=== PATIENT | male | born 1975 | race American Indian/Alaskan Native ===

== ENCOUNTER 2018-01-08 12:11 | Emergency (ER) | payer OTHER ==
--- NOTE | 2018-01-08 16:00 | Emergency Department Report ---
ED Male HPI - General Chief complaint: Urogenital-Male Stated complaint: TESTICLE PAIN Time Seen by Provider: 01/08/18 17:00 Source: patient Mode of arrival: Ambulatory Limitations: No Limitations - History of Present Illness Initial comments: Patient here complaining of left testicular swelling and bilateral testicular pain. He is also saying that he had lower back pain that started flaring up for 3 days but he's been have an lower back pain for over 2 years now. Denies any radiation. Pain is located on both sides. He reports urine frequency but denies any blood in his urine or any burning. Denies any penile discharge and denies any rash to his penile area. Patient said he is not concerned about STDs because he does not have unprotected sex. Denies any sore throat. Denies any radiation of pain to her extremities. Denies any abdominal pain. Denies any nausea or vomiting. Denies any fever or chills. Urinary symptoms started 3 days ago. Patient blood pressure is elevated at 159/109 and he said he takes lisinopril 10 mg. He said he has a primary care doctor and he saw him 5 years ago and his primary care will call in his lisinopril. He said that his primary care causing his lisinopril when he needs it but he hasn't seen them in 5 years. Patient said he had a physical exam done at urgent care recently and everything was normal except his blood pressure was elevated. He said his blood pressure is always elevated. He denies any headache, chest pain or shortness of breath. Patient was here in 2012 and lisinopril was refilled. He said after that he saw his primary care refilled this medication [facility] to call him. He said it still far for him to go because [facility] in [place]. I asked patient and the name of his primary care but he did not want to tell me and I also asked him which pharmacy he goes to and he said he goes to [facility]. He was given clonidine 0.2 mg in triage area. Denies any history of kidney stones. Complaint: testicle pain, testicle swelling, other (frequency) Onset/Timin -: days(s) Location: right testicle, left testicle Radiation: none Severity: severe Severity scale (0 -10): 5 Quality: dull Consistency: constant Improves with: rest Worsens with: palpation, movement swelling, other. denies: discharge, mass, rash, urinary retention, blood in urine, dysuria, fever, nausea/vomiting, incontinence - Related Data Sexually active: No Home Medications Medication Instructions Recorded Confirmed Last Taken HYDROcodone/ACETAMINOPHEN 08/06/13 08/06/13 08/03/13 19:30 [Hydrocodon-Acetaminophen 5-500 Tab (Nf)] Naproxen 08/06/13 08/06/13 07/30/13 Previous Rx's Medication Instructions Recorded Last Taken Type HYDROcodone/APAP 5-325 [[place] 1 each PO Q6HR PRN #60 tablet 08/06/13 Unknown Rx 5/325 mg] metroNIDAZOLE [Flagyl] 250 mg PO Q8HR #30 tablet 08/06/13 Unknown Rx Doxycycline [Vibramycin CAP] 100 mg PO Q12HR #20 capsule 07/30/15 Unknown Rx Ibuprofen [Motrin] 600 mg PO Q8H PRN #30 tablet 07/30/15 Unknown Rx metroNIDAZOLE [Flagyl] 500 mg PO Q12HR #20 tab 07/30/15 Unknown Rx Ciprofloxacin HCl [Ciprofloxacin 500 mg PO Q12H 10 Days #20 tab 01/08/18 Unknown Rx TAB] Lisinopril 20 mg PO QDAY 30 Days #30 tablet 01/08/18 Unknown Rx traMADol [Ultram] 50 mg PO Q6HR PRN #12 tablet 01/08/18 Unknown Rx Allergies Allergy/AdvReac Type Severity Reaction Status Date / Time No Known Allergies Allergy Unverified 07/30/13 10:09 ED Review of Systems ROS: Stated complaint: TESTICLE PAIN Other details as noted in HPI Comment: All other systems reviewed and negative Constitutional: no symptoms reported ENT: denies: throat pain Respiratory: no symptoms reported Cardiovascular: denies: chest pain, palpitations, dyspnea on exertion, orthopnea , edema, syncope, paroxysmal nocturnal dyspnea Gastrointestinal: denies: abdominal pain, nausea, vomiting, diarrhea, constipation, hematemesis, melena, hematochezia Genitourinary: frequency, testicular pain, testicular mass. denies: urgency, dysuria, hematuria, discharge Musculoskeletal: back pain. denies: joint swelling, arthralgia, myalgia Skin: denies: rash Neurological: denies: headache, weakness, numbness, paresthesias, confusion, abnormal gait, vertigo ED Past Medical Hx - Past Medical History Previous Medical History?: Yes Hx Hypertension: Yes - Surgical History Past Surgical History?: No - Family History Family history: hypertension - Social History Smoking Status: Never Smoker Substance Use Type: Alcohol - Medications Home Medications: Home Medications Medication Instructions Recorded Confirmed Last Taken Type HYDROcodone/ACETAMINOPHEN 08/06/13 08/06/13 08/03/13 19:30 History [Hydrocodon-Acetaminophen 5-500 Tab (Nf)] HYDROcodone/APAP 5-325 [[place] 1 each PO Q6HR PRN #60 tablet 08/06/13 Unknown Rx 5/325 mg] Naproxen 08/06/13 08/06/13 07/30/13 History metroNIDAZOLE [Flagyl] 250 mg PO Q8HR #30 tablet 08/06/13 Unknown Rx Doxycycline [Vibramycin CAP] 100 mg PO Q12HR #20 capsule 07/30/15 Unknown Rx Ibuprofen [Motrin] 600 mg PO Q8H PRN #30 tablet 07/30/15 Unknown Rx metroNIDAZOLE [Flagyl] 500 mg PO Q12HR #20 tab 07/30/15 Unknown Rx Ciprofloxacin HCl [Ciprofloxacin 500 mg PO Q12H 10 Days #20 tab 01/08/18 Unknown Rx TAB] Lisinopril 20 mg PO QDAY 30 Days #30 tablet 01/08/18 Unknown Rx traMADol [Ultram] 50 mg PO Q6HR PRN #12 tablet 01/08/18 Unknown Rx ED Physical Exam - General Limitations: No Limitations General appearance: alert, in no apparent distress - Head Head exam: Present: atraumatic, normocephalic, normal inspection - Eye Eye exam: Present: normal appearance, PERRL, EOMI. Absent: scleral icterus, conjunctival injection, nystagmus, periorbital swelling, periorbital tenderness Pupils: Present: normal accommodation - ENT ENT exam: Present: normal exam, normal orophraynx, mucous membranes moist - Neck Neck exam: Present: normal inspection, full ROM, other. Absent: tenderness, meningismus, lymphadenopathy, thyromegaly - Respiratory Respiratory exam: Present: normal lung sounds bilaterally. Absent: respiratory distress, chest wall tenderness, accessory muscle use - Cardiovascular Cardiovascular Exam: Present: regular rate, normal rhythm, normal heart sounds. Absent: systolic murmur, diastolic murmur - GI/Abdominal GI/Abdominal exam: Present: soft, normal bowel sounds. Absent: distended, tenderness, guarding, rebound, rigid, organomegaly, mass, bruit, pulsatile mass , hernia - exam: Present: testicular tenderness, scrotal swelling. Absent: normal inspection, urethral discharge, vertical testicular lie, circumcision External exam: Present: swelling. Absent: normal external exam, erythema, lesions, lacerations, ecchymosis, bleeding - Expanded Exam Expanded Male exam: Absent: phimosis, paraphimosis, penile swelling, lesions, induration, erythema, perineal induration, balanitis, priapism exam: Testicular Tenderness: Left, Right, Testicular Swelling: Left, Cremasteric Reflex Present: Left, Right - Extremities Exam Extremities exam: Present: normal inspection, full ROM, normal capillary refill , other (no clubbing, cyanosis or edema. +2 pulses to all extremities. No neurovascular compromise). Absent: tenderness, pedal edema, joint swelling, calf tenderness - Back Exam Back exam: Present: normal inspection, full ROM, other (patient ambulates without any difficulties). Absent: tenderness, CVA tenderness (R), CVA tenderness (L), muscle spasm, paraspinal tenderness, vertebral tenderness, rash noted - Expanded Back Exam Expanded Back exam: Absent: saddle anesthesia Back exam: Negative Straight Leg Raising: Left, Right - Neurological Exam Neurological exam: Present: alert, oriented X3, normal gait, reflexes normal. Absent: motor sensory deficit - Expanded Neurological Exam Expanded Neurological exam: Absent: innattentive, memory loss-remote event, memory loss- recent event, ataxia, receptive aphasia, expressive aphasia, total aphasia, tremor, protecting the airway Patient oriented to: Present: person, place, time Speech: Present: fluid speech Cranial nerves: EOM's Intact: Normal, Gag Reflex: Normal, Tongue Deviation: Normal, Nystagmus: Normal Cerebellar function: Romberg: Normal Upper motor neuron: Pronator Drift: Normal, Sensory Extinction: Normal Sensory exam: Upper Extremity Light Touch: Normal, Upper Extremity Temperature: Normal, UE 2 Point Discrimination: Normal, Lower Extremity Light Touch: Normal, Lower Extremity Pin Prick: Normal, Lower Extremity Temperature: Normal Motor strength exam: RUE: 5, LUE: 5, RLE: 5, LLE: 5 DTR: bicep (R): 2+, bicep (L): 2+, tricep (R): 2+, tricep (L): 2+, knee (R): 2+ , knee (L): 2+, ankle (R): 2+, ankle (L): 2+ Best Eye Response (Billy): (4) open spontaneously Best Motor Response (Seward): (6) obeys commands Best Verbal Response (Billy): (5) oriented Billy Total: 15 - Psychiatric Psychiatric exam: Present: normal affect, normal mood - Skin Skin exam: Present: warm, dry, intact, normal color. Absent: rash ED Course Vital Signs 01/08/18 01/08/18 01/08/18 13:57 17:36 18:47 Temperature 98.3 F Pulse Rate 97 H 85 Respiratory 16 18 20 Rate Blood Pressure 159/109 Blood Pressure 142/92 [Right] O2 Sat by Pulse 98 99 Oximetry - Reevaluation(s) Reevaluation #1: 01/08/18 18:19 Patient is stable. He received Motrin 800 mg by mouth in the emergency room for pain. Patient with urinary tract infection and receive Rocephin 1 g IM. Ultrasound shows patient with bilateral hydrocele otherwise normal. Patient given clonidine 0.2 mg and blood pressure to be rechecked. ED Medical Decision Making - Lab Data Lab Results 01/08/18 Range/Units 15:27 Urine Color Yellow (Yellow) Urine Turbidity Clear (Clear) Urine pH 6.0 (5.0-7.0) Ur Specific [place] 1.016 (1.003-1.030) Urine Protein <15 mg/dl (Negative) mg/dL Urine Glucose (UA) Neg (Negative) mg/dL Urine Ketones Neg (Negative) mg/dL Urine Blood Neg (Negative) Urine Nitrite Neg (Negative) Urine Bilirubin Neg (Negative) Urine Urobilinogen < 2.0 (<2.0) mg/dL Ur Leukocyte Esterase Sm (Negative) Urine WBC (Auto) 9.0 H (0.0-6.0) /HPF Urine RBC (Auto) 3.0 (0.0-6.0) /HPF Urine Bacteria (Auto) 1+ (Negative) /HPF Urine culture sent - Radiology Data Radiology results: report reviewed Ultrasound of the testicles revealed small bilateral hydroceles.. There are no focal masses. There is normal testicular blood flow demonstrated by Doppler evaluation and call or imaging. The epididymal head appears normal. There are no varicoceles. - Medical Decision Making ED course: Pt here complaining of testicular pain, lower back pain which he said he has chronic lower back pain but lower back pain started again 3 days ago and he denies injured himself and he is also have urinary frequency. Urinalysis done in patient with positive leukocyte Estrace, positive white count and positive bacteria otherwise of the urine values are stable. In culture pending. Testicular ultrasound reveals patient with bilateral small hydrocele without any other abnormality. This was relayed to patient and he voiced understanding. I discussed patient that he needs to find a new primary care doctor that will be able to see him and not order his medication for 5 years over the phone for his blood pressure. Patient prescription is up-to- date. He was given clonidine 0.2 mg by mouth in emergency room. Patient was given Motrin 800 mg by mouth for pain which helped his pain. He was given Rocephin 1 g IM for urinary tract infection. I discussed the patient will refer him to Dr. Verdugo was provider relations rep internal medicine doctor that he needs to call and schedule an appointment for new patient's physical exam and management of chronic hypertension. I also discussed with him that he'll need to follow- up with urologist regarding hydrocele if this continues and I'll refer him to [facility]. Patient voiced understanding of diagnosis, treatment plan and need to follow up. Patient discharged home with prescription for ciprofloxacin , Ultram and I will increase his lisinopril to 20 mg once daily for management of blood pressure. Critical care attestation.: If time is entered above; I have spent that time in minutes in the direct care of this critically ill patient, excluding procedure time. ED Disposition Clinical Impression: Elevated blood pressure reading with diagnosis of hypertension, Hydrocele in adult, Testicular pain, Acute cystitis without hematuria Lower back pain Qualifiers: Chronicity: unspecified Back pain laterality: bilateral Sciatica presence: without sciatica Qualified Code(s): M54.5 - Low back pain Disposition: - TO HOME OR SELFCARE Is pt being admited?: No Does the pt Need Aspirin: No Condition: Stable Instructions: Hydrocele (ED), Testicular Self-examination (ED), Urinary Tract Infection in Men (ED), Testicle Pain (ED), DASH Eating Plan (ED), Low Sodium Diet (ED), Hypertension (ED), Back Pain (ED), Core Strengthening Exercises (GEN) Additional Instructions: Please see new prescription for lisinopril. Take 20 mg once daily. Please see referral for primary care physician in [place] area. Dr. Katelyn Verdugo information is in [facility] discharge instruction paperwork. Call tomorrow to schedule an appointment for new patient visit and management of chronic hypertension. He waiting to see Dr. Verdugo keep a log a few blood pressure and record and take to visit with you. Please see referral to [facility] for hydrocele. Take antibiotic as prescribed for urinary tract infection Take Ultram for testicular pain and back pain. Follow-up with Dr. Velásquez for chronic back pain. Increased her fluid intake to 2-3 L of water daily. 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
[2018-01-08 16:25] LABS: Bacteria,Urine 1+ /HPF (Negative); Bilirubin,Urine NEG (Negative); Blood,Urine NEG (Negative); Color,Urine Yellow (Yellow); Protein,Urine <15 mg/dL mg/dL (Negative); Urobilinogen,Urine < 2.0 mg/dL (<2.0)
--- NOTE | 2018-01-08 17:19 | Ultrasound Report ---
FINAL REPORT PROCEDURE: Scrotal ultrasound. TECHNIQUE: Real-time chavez-scale and color flow Doppler sonography in multiple planes of the scrotum, testicles, and epididymes was performed. Velocity spectral waveform analysis Doppler imaging of the arterial inflow and venous outflow of the testicles was performed with image documentation. CPT 47658 and 51321 HISTORY: testicular pain and swelling COMPARISON: No prior studies are available for comparison. FINDINGS: Both testes have uniform echogenicity. There are no focal masses. There is normal testicular blood flow demonstrated by Doppler evaluation and color imaging. There are small bilateral hydroceles. The epididymal heads appear normal. There are no varicoceles. IMPRESSION: Small bilateral hydroceles.
[2018-01-08] MEDS ORDERED: CATAPRES PO ONE (17:22)
[2018-01-08] MEDS ORDERED: TYLENOL PO ONE (17:22)
[2018-01-08] MEDS ORDERED: ROCEPHIN IM STA (17:27)
[2018-01-08] MEDS ORDERED: XYLOCAINE 1% MPF 5 mL INFILTRATI ONE (17:27)
[2018-01-08 18:48] VITALS: BP 142/92
== END 2018-01-08 18:47 | disposition home or self-care (01) ==
LOC: ED 12:11
DX: N43.3 Hydrocele, unspecified (principal); N30.00 Acute cystitis without hematuria; I10 Essential (primary) hypertension
CPT/HCPCS: 81001; 87086; 93975; 96372; 99284; J0696

== ENCOUNTER 2019-04-29 01:08 | Emergency (ER) | payer OTHER ==
[2019-04-29] MEDS ORDERED: TORADOL IV ONE (02:06)
--- NOTE | 2019-04-29 02:49 | Ultrasound Report ---
ULTRASOUND SCROTUM INDICATION: right testicle pain and swelling. COMPARISON None available. FINDINGS -- RIGHT TESTIS: Size: 3.9 x 1.9 x 2.8 cm. Echotexture: Normal. Color Doppler Flow: Normal. Lesions: None. EPIDIDYMIS: Size: Enlarged Echotexture: Normal. Color Doppler Flow: Hypervascular Lesions: None. Hydrocele: None. Varicocele: None. Additional Findings: None. FINDINGS -- LEFT TESTIS: Size: 4.3 x 1.5 x 2.7 cm. Echotexture: Normal. Color Doppler Flow: Normal. Lesions: None. EPIDIDYMIS: Size: Normal. Echotexture: Normal. Color Doppler Flow: Normal. Lesions: None. Hydrocele: None. Varicocele: None. Additional Findings: None. IMPRESSION: 1. Right epididymitis. No sonographic evidence of orchitis. Signer Name: Mariano Bryant MD Signed: 04/29/2019 2:45 AM Workstation Name: [email or web address]
[2019-04-29 03:40] LABS: Bacteria,Urine 1+ /HPF (Negative); Bilirubin,Urine NEG (Negative); Blood,Urine NEG (Negative); Color,Urine Yellow (Yellow); Protein,Urine <15 mg/dL mg/dL (Negative); Urobilinogen,Urine < 2.0 mg/dL (<2.0)
[2019-04-29] MEDS ORDERED: ROCEPHIN IM ONE (03:46)
[2019-04-29] MEDS ORDERED: ZITHROMAX PO ONE (03:46)
[2019-04-29] MEDS ORDERED: XYLOCAINE 1% MPF 5 mL INFILTRATI ONE (03:46)
--- NOTE | 2019-04-29 03:51 | Emergency Department Report ---
ED Male HPI - General Chief complaint: Urogenital-Male Stated complaint: TESTICULAR PAIN Time Seen by Provider: 04/29/19 02:01 Source: patient, old records reviewed (previous visits for testicular pain and urine symptoms) Mode of arrival: Ambulatory Limitations: No Limitations - History of Present Illness Initial comments: 44-year-old male with past medical history of hypertension presents to the hospital with complaints of right testicular pain and swelling 2 days. Denies any injury. He denies penile discharge or ulceration. He is sexually active and occasionally uses condoms with a woman who is . Last intercourse was 2 weeks ago. He denies dysuria, nausea, vomiting, or fever. Intermittent lower back pain reported. - Related Data Home Medications Medication Instructions Recorded Confirmed Last Taken HYDROcodone/ACETAMINOPHEN 08/06/13 08/06/13 08/03/13 19:30 [Hydrocodon-Acetaminophen 5-500 Tab (Nf)] Naproxen 08/06/13 08/06/13 07/30/13 Previous Rx's Medication Instructions Recorded Last Taken Type HYDROcodone/APAP 5-325 [[place] 1 each PO Q6HR PRN #60 tablet 08/06/13 Unknown Rx 5/325 mg] metroNIDAZOLE [Flagyl] 250 mg PO Q8HR #30 tablet 08/06/13 Unknown Rx DOXYCYCLINE Hyclate [Vibramycin 100 mg PO Q12HR #20 capsule 07/30/15 Unknown Rx CAP] Ibuprofen [Motrin] 600 mg PO Q8H PRN #30 tablet 07/30/15 Unknown Rx metroNIDAZOLE [Flagyl] 500 mg PO Q12HR #20 tab 07/30/15 Unknown Rx Ciprofloxacin HCl [Ciprofloxacin 500 mg PO Q12H 10 Days #20 tab 01/08/18 Unknown Rx TAB] Lisinopril 20 mg PO QDAY 30 Days #30 tablet 01/08/18 Unknown Rx traMADol [Ultram] 50 mg PO Q6HR PRN #12 tablet 01/08/18 Unknown Rx Ibuprofen [Motrin] 800 mg PO Q8HR PRN #30 tablet 04/29/19 Unknown Rx levoFLOXacin [Levaquin TAB] 500 mg PO QDAY #10 tablet 04/29/19 Unknown Rx traMADol [Ultram 50 MG tab] 50 mg PO Q6HR PRN #20 tablet 04/29/19 Unknown Rx Allergies Allergy/AdvReac Type Severity Reaction Status Date / Time No Known Allergies Allergy Verified 07/08/19 01:13 ED Review of Systems ROS: Stated complaint: TESTICULAR PAIN Other details as noted in HPI Comment: All other systems reviewed and negative ED Past Medical Hx - Past Medical History Previous Medical History?: Yes Hx Hypertension: Yes - Surgical History Past Surgical History?: No - Social History Smoking Status: Never Smoker Substance Use Type: Alcohol - Medications Home Medications: Home Medications Medication Instructions Recorded Confirmed Last Taken Type HYDROcodone/ACETAMINOPHEN 08/06/13 08/06/13 08/03/13 19:30 History [Hydrocodon-Acetaminophen 5-500 Tab (Nf)] HYDROcodone/APAP 5-325 [[place] 1 each PO Q6HR PRN #60 tablet 08/06/13 Unknown Rx 5/325 mg] Naproxen 08/06/13 08/06/13 07/30/13 History metroNIDAZOLE [Flagyl] 250 mg PO Q8HR #30 tablet 08/06/13 Unknown Rx DOXYCYCLINE Hyclate [Vibramycin 100 mg PO Q12HR #20 capsule 07/30/15 Unknown Rx CAP] Ibuprofen [Motrin] 600 mg PO Q8H PRN #30 tablet 07/30/15 Unknown Rx metroNIDAZOLE [Flagyl] 500 mg PO Q12HR #20 tab 07/30/15 Unknown Rx Ciprofloxacin HCl [Ciprofloxacin 500 mg PO Q12H 10 Days #20 tab 01/08/18 Un known Rx TAB] Lisinopril 20 mg PO QDAY 30 Days #30 tablet 01/08/18 Unknown Rx traMADol [Ultram] 50 mg PO Q6HR PRN #12 tablet 01/08/18 Unknown Rx Ibuprofen [Motrin] 800 mg PO Q8HR PRN #30 tablet 04/29/19 Unknown Rx levoFLOXacin [Levaquin TAB] 500 mg PO QDAY #10 tablet 04/29/19 Unknown Rx traMADol [Ultram 50 MG tab] 50 mg PO Q6HR PRN #20 tablet 04/29/19 Unknown Rx ED Physical Exam - General Limitations: No Limitations - Other Other exam information: General: No limitations, patient is alert in no acute distress Head exam: Atraumatic, normocephalic Eyes exam: Normal appearance ENT: Moist mucous membrane Neck exam: Normal inspection, full range of motion, no meningismus nontender Respiratory exam: Clear to auscultation bilateral, no wheezes, rales, crackles Cardiovascular: Mild tachycardia regular rhythm Abdomen: Soft, nondistended, and nontender, with normal bowel sounds, no rebound, or guarding : Right testicular tenderness greatest at the epididymis. Circumcised, no penile discharge or lesions. No inguinal lymphadenopathy. Extremity: Full range of motion normal inspection no deformity Back: Normal Inspection, full range of motion, no tenderness Neurologic: Alert, oriented x3, cranial nerves intact, no motor or sensory deficit Psychiatric: normal affect, normal mood Skin: Warm, dry, intact ED Course Vital Signs 04/29/19 04/29/19 04/29/19 01:10 01:41 01:42 Temperature 98.6 F Pulse Rate 114 H 109 H Respiratory 18 19 Rate Blood Pressure 160/106 Blood Pressure 131/83 [Left] O2 Sat by Pulse 96 98 98 Oximetry 04/29/19 03:14 Temperature Pulse Rate 104 H Respiratory 19 Rate Blood Pressure Blood Pressure 116/65 [Left] O2 Sat by Pulse 98 Oximetry ED Medical Decision Making - Radiology Data Radiology results: report reviewed ULTRASOUND SCROTUM INDICATION: right testicle pain and swelling. COMPARISON None available. FINDINGS -- RIGHT TESTIS: Size: 3.9 x 1.9 x 2.8 cm. Echotexture: Normal. Color Doppler Flow: Normal. Lesions: None. EPIDIDYMIS: Size: Enlarged Echotexture: Normal. Color Doppler Flow: Hypervascular Lesions: None. Hydrocele: None. Varicocele: None. Additional Findings: None. FINDINGS -- LEFT TESTIS: Size: 4.3 x 1.5 x 2.7 cm. Echotexture: Normal. Color Doppler Flow: Normal. Lesions: None. EPIDIDYMIS: Size: Normal. Echotexture: Normal. Color Doppler Flow: Normal. Lesions: None. Hydrocele: None. Varicocele: None. Additional Findings: None. IMPRESSION: 1. Right epididymitis. No sonographic evidence of orchitis. - Medical Decision Making Patient presents with right testicular pain. Ultrasound significant for right sided epididymitis. Patient received Rocephin and azithromycin in the ED given that he is sexually active with a woman and occasionally uses condoms. But does not have dysuria or penile discharge to suggest urethritis and therefore will be treated with Levaquin as well given his age over 35. Cultures for gonorrhea and chlamydia and urine are pending - Differential Diagnosis epididymitis, orchitis, torsion, renal colic, urethritis Critical Care Time: No Critical care attestation.: If time is entered above; I have spent that time in minutes in the direct care of this critically ill patient, excluding procedure time. ED Disposition Clinical Impression: Right epididymitis Disposition: TO HOME OR SELFCARE Is pt being admited?: No Does the pt Need Aspirin: No Condition: Stable Instructions: Epididymitis (ED) Additional Instructions: Take the medication as prescribed. Follow up with your doctor or the clinic/doctor provided. Return if symptoms worsen as indicated by your discharge instructions Prescriptions: levoFLOXacin [Levaquin TAB] 500 mg PO QDAY #10 tablet Ibuprofen [Motrin] 800 mg PO Q8HR PRN #30 tablet PRN Reason: Pain, Moderate (4-6) traMADol [Ultram 50 MG tab] 50 mg PO Q6HR PRN #20 tablet PRN Reason: Pain , Severe (7-10) Referrals: CAROLYNN FELIX MD [Staff Physician] - 3-5 Days (urology ) [facility] ALYSSA FULLER MD [Primary Care Provider] - 3-5 Days (primary care clinic ) Forms: STI Treatment and Prevention Time of Disposition: 04:48
[2019-04-29 05:04] VITALS: BP 115/86
--- NOTE | 2019-05-03 15:30 | Emergency Department Report ---
Blank Doc - Documentation Documentation: pt results were positive for C. Trachomatis pt was appropriately treated in the ED with ceftriaxone and azithromycin during their visit
== END 2019-04-29 05:03 | disposition home or self-care (01) ==
LOC: ED 01:08
DX: N45.1 Epididymitis (principal); I10 Essential (primary) hypertension; Z79.899 Other long term (current) drug therapy
CPT/HCPCS: 81001; 87086; 87591; 93975; 96372; 96374; 99284; J0696; J1885

== ENCOUNTER 2020-07-25 13:46 | Emergency (ER) | payer SELFPAY ==
[2020-07-25 13:52] VITALS: BP 124/83
--- NOTE | 2020-07-25 14:32 | XRay Report ---
CHEST 2 VIEWS, 07/25/2020 2:11 PM INDICATION: Cough. Shortness of breath. COMPARISON: None FINDINGS: Support devices: None. Heart: The cardiac silhouette is normal in size. Lungs/pleura: The lungs are clear of focal airspace disease or significant pleural effusion. Additional findings: No significant acute abnormality. IMPRESSION: 1. No evidence of acute cardiopulmonary process. Signer Name: Nano Mustafa MD Signed: 07/25/2020 2:28 PM Workstation Name: [id number]
== END 2020-07-25 16:31 | disposition left against medical advice (07) ==
LOC: ED 13:46
DX: Z53.21 Procedure and treatment not carried out due to patient leaving prior to being seen by health care provider (principal)
CPT/HCPCS: 71046

== ENCOUNTER 2020-07-26 06:48 | Emergency (ER) | payer SELFPAY ==
[2020-07-26] MEDS ORDERED: BENZONATATE 100 MG CAP PO ONE (11:12)
[2020-07-26] MEDS ORDERED: ACETAMINOPHEN 500 MG TAB PO ONE (11:12)
--- NOTE | 2020-07-26 11:18 | Emergency Department Report ---
- General Chief Complaint: Medical Clearance Stated Complaint: COVID SYMPTOMS Time Seen by Provider: 07/26/20 10:17 Source: family Mode of arrival: Ambulatory Limitations: No Limitations - History of Present Illness Initial Comments: This is a 45-year-old male nontoxic, well nourished in appearance, no acute signs of distress presents to the ED with c/o of productive cough, subjective fever, chills, body aches, rhinorrhea, nasal congestion x1 week. Patient describes productive cough as yellow mucus production. Patient denies any sick contacts. Patient denies any recent travels, long car, recent hospital stays. Patient denies any calf pain or calf tenderness. Patient denies any chest pain, short of breath, fever, chills, nausea, vomiting, hemoptysis, numbness, tinglin g, headache or stiff neck. Denies any allergies or PMH. MD Complaint: fever, cough, rhinorrhea, nasal congestion, other (Body aches) -: week(s) Severity: mild Severity scale (0 -10): 8 Quality: aching Consistency: constant Improves With: nothing Worsens With: nothing Associated Symptoms: fever, chills, rhinorrhea, nasal congestion, cough. denies: myalgias, diaphoresis, headache, sore throat, stiff neck, chest pain, shortness of breath, abdominal pain, nausea, vomiting, diarrhea, dysuria, rash, confusion, right sweats, weight loss, epistaxis, hoarseness, ear pain Treatments Prior to Arrival: none - Related Data Home Medications Medication Instructions Recorded Confirmed Last Taken HYDROcodone/ACETAMINOPHEN 08/06/13 08/06/13 08/03/13 19:30 [Hydrocodon-Acetaminophen 5-500 Tab (Nf)] Naproxen 08/06/13 08/06/13 07/30/13 Previous Rx's Medication Instructions Recorded Last Taken Type HYDROcodone/APAP 5-325 [[place] 1 each PO Q6HR PRN #60 tablet 08/06/13 Unknown Rx 5/325 mg] metroNIDAZOLE [Flagyl] 250 mg PO Q8HR #30 tablet 08/06/13 Unknown Rx DOXYCYCLINE Hyclate [Vibramycin 100 mg PO Q12HR #20 capsule 07/30/15 Unknown Rx CAP] Ibuprofen [Motrin] 600 mg PO Q8H PRN #30 tablet 07/30/15 Unknown Rx metroNIDAZOLE [Flagyl] 500 mg PO Q12HR #20 tab 07/30/15 Unknown Rx Ciprofloxacin HCl [Ciprofloxacin 500 mg PO Q12H 10 Days #20 tab 01/08/18 Unknown Rx TAB] lisinopriL [Lisinopril] 20 mg PO QDAY 30 Days #30 tablet 01/08/18 Unknown Rx traMADoL [Ultram] 50 mg PO Q6HR PRN #12 tablet 01/08/18 Unknown Rx Ibuprofen [Motrin] 800 mg PO Q8HR PRN #30 tablet 04/29/19 Unknown Rx levoFLOXacin [Levaquin TAB] 500 mg PO QDAY #10 tablet 04/29/19 Unknown Rx traMADoL [Ultram 50 MG tab] 50 mg PO Q6HR PRN #20 tablet 04/29/19 Unknown Rx Acetaminophen [Acetaminophen 8 650 mg PO Q8H PRN #12 tablet.er 07/26/20 Unknown Rx Hour] Benzonatate [Tessalon Perles] 100 mg PO Q8HR PRN #12 capsule 07/26/20 Unknown Rx Allergies Allergy/AdvReac Type Severity Reaction Status Date / Time No Known Allergies Allergy Verified 07/26/20 07:10 ED Review of Systems ROS: Stated complaint: COVID SYMPTOMS Other details as noted in HPI Constitutional: chills, fever Eyes: denies: eye pain, eye discharge, vision change ENT: congestion. denies: ear pain, throat pain Respiratory: cough. denies: shortness of breath, wheezing Cardiovascular: denies: chest pain, palpitations Endocrine: no symptoms reported Gastrointestinal: denies: abdominal pain, nausea, diarrhea Genitourinary: denies: urgency, dysuria Musculoskeletal: denies: back pain, joint swelling, arthralgia Skin: denies: rash, lesions Neurological: denies: headache, weakness, paresthesias Psychiatric: denies: anxiety, depression Hematological/Lymphatic: denies: easy bleeding, easy bruising ED Past Medical Hx - Past Medical History Hx Hypertension: Yes - Social History Smoking Status: Never Smoker Substance Use Type: None - Medications Home Medications: Home Medications Medication Instructions Recorded Confirmed Last Taken Type HYDROcodone/ACETAMINOPHEN 08/06/13 08/06/13 08/03/13 19:30 History [Hydrocodon-Acetaminophen 5-500 Tab (Nf)] HYDROcodone/APAP 5-325 [[place] 1 each PO Q6HR PRN #60 tablet 08/06/13 Unknown Rx 5/325 mg] Naproxen 08/06/13 08/06/13 07/30/13 History metroNIDAZOLE [Flagyl] 250 mg PO Q8HR #30 tablet 08/06/13 Unknown Rx DOXYCYCLINE Hyclate [Vibramycin 100 mg PO Q12HR #20 capsule 07/30/15 Unknown Rx CAP] Ibuprofen [Motrin] 600 mg PO Q8H PRN #30 tablet 07/30/15 Unknown Rx metroNIDAZOLE [Flagyl] 500 mg PO Q12HR #20 tab 07/30/15 Unknown Rx Ciprofloxacin HCl [Ciprofloxacin 500 mg PO Q12H 10 Days #20 tab 01/08/18 Unknown Rx TAB] lisinopriL [Lisinopril] 20 mg PO QDAY 30 Days #30 tablet 01/08/18 Unknown Rx traMADoL [Ultram] 50 mg PO Q6HR PRN #12 tablet 01/08/18 Unknown Rx Ibuprofen [Motrin] 800 mg PO Q8HR PRN #30 tablet 04/29/19 Unknown Rx levoFLOXacin [Levaquin TAB] 500 mg PO QDAY #10 tablet 04/29/19 Unknown Rx traMADoL [Ultram 50 MG tab] 50 mg PO Q6HR PRN #20 tablet 04/29/19 Unknown Rx Acetaminophen [Acetaminophen 8 650 mg PO Q8H PRN #12 tablet.er 07/26/20 Unknown Rx Hour] Benzonatate [Tessalon Perles] 100 mg PO Q8HR PRN #12 capsule 07/26/20 Unknown Rx ED Physical Exam - General Limitations: No Limitations General appearance: alert, in no apparent distress - Head Head exam: Present: atraumatic, normocephalic - Eye Eye exam: Present: normal appearance - ENT ENT exam: Present: normal exam, normal orophraynx - Neck Neck exam: Present: normal inspection, full ROM. Absent: tenderness, meningismus, lymphadenopathy - Respiratory Respiratory exam: Present: normal lung sounds bilaterally. Absent: respiratory distress, wheezes, rales, rhonchi, stridor, chest wall tenderness, accessory muscle use, decreased breath sounds, prolonged expiratory - Cardiovascular Cardiovascular Exam: Present: regular rate, normal rhythm, normal heart sounds. Absent: irregular rhythm, systolic murmur, diastolic murmur, rubs, gallop - Extremities Exam Extremities exam: Present: full ROM - Back Exam Back exam: Present: full ROM - Neurological Exam Neurological exam: Present: alert, oriented X3, normal gait - Psychiatric Psychiatric exam: Present: normal affect, normal mood - Skin Skin exam: Present: warm, dry, intact, normal color. Absent: rash ED Course Vital Signs 07/26/20 07:10 Temperature 99.6 F Pulse Rate 110 H Respiratory 16 Rate Blood Pressure 139/81 O2 Sat by Pulse 95 Oximetry - Reevaluation(s) Reevaluation #1: 07/26/20 11:17 Patient is speaking in full sentences with no signs of distress noted. ED Medical Decision Making - Radiology Data Referring Physician: ED YENNY Patient Name: HENRIQUE ESPINOZA Date of : 1975 Sex: Male Report Date: 2020-07-25 Report Status: Finalized [address] [address] XRay Report Signed Patient: HENRIQUE ESPINOZA MR#: [id number] : 1975 Acct:[id number] Age/Sex: 45 / M ADM Date: 07/25/20 Loc: ED Attending Dr: Ordering Physician: GIOVANNA RAMON MD Date of Service: 07/25/20 Procedure(s): XR chest routine 2V Accession Number(s): [id number] cc: ED MD YENNY Fluoro Time In Minutes: CHEST 2 VIEWS, 07/25/2020 2:11 PM INDICATION: Cough. Shortness of breath. COMPARISON: None FINDINGS: Support devices: None. Heart: The cardiac silhouette is normal in size. Lungs/pleura: The lungs are clear of focal airspace disease or significant pleural effusion. Additional findings: No significant acute abnormality. IMPRESSION: 1. No evidence of acute cardiopulmonary process. Signer Name: Nano Mustafa MD Signed: 07/25/2020 2:28 PM Workstation Name: [id number] Transcribed By: EB Dictated By: Nano Mustafa MD Electronically Authenticated By: Nano Mustafa MD Signed Date/Time: 07/25/201427 DD/ 26 TD/TT: - Medical Decision Making This is a 45-year-old male that presents with suspected COVID. Patient is stable and was examined by me. Chest x-ray has been obtained yesterday before patient LWT and dictated by radiologist with normal exam. Patient is notified of x-ray results with no questions noted. Patient was instructed and educated to self quarantine and seek medical attention as soon as possible if symptoms worsen and/ir continue. Patient was instructed to increase hydration, rest and take tylenol for fever episodes. Patient received Tylenol and tesslone perrls in the ED. Vitals stable. Patient is nonfebrile and normal heart rate. Patient was instructed Follow-up with a primary care doctor in 3-5 days or if symptoms worsen and continue return to emergency room as soon as possible. At time time of discharge, the patient does not seem toxic or ill in appearance. No acute signs of distress noted. Patient agrees to discharge treatment plan of care. No further questions noted by the patient.nt. - Differential Diagnosis PNA, covid, bronchitis, viral URI Critical care attestation.: If time is entered above; I have spent that time in minutes in the direct care of this critically ill patient, excluding procedure time. ED Disposition Clinical Impression: Suspected COVID-19 virus infection Disposition: DC-01 TO HOME OR SELFCARE Is pt being admited?: No Does the pt Need Aspirin: No Condition: Stable Instructions: COVID-19 Additional Instructions: Follow-up with a primary care doctor in 3-5 days or if symptoms worsen and continue return to emergency room as soon as possible. As educated and instructed to you must self quarantine yourself and people that you have been in close contact with similar symptoms for the next 14 days. Please see your nearest health department or primary care doctor that you are referred to for COVID testing. Increased rest, hydration, and take Tylenol as prescribed for fever episode. Prescriptions: Acetaminophen [Acetaminophen 8 Hour] 650 mg PO Q8H PRN #12 tablet.er PRN Reason: fever/pain Benzonatate [Tessalon Perles] 100 mg PO Q8HR PRN #12 capsule PRN Reason: Cough Referrals: CHEIKH KAISER MD [Primary Care Provider] - 3-5 Days ROBER BARAJAS MD [Staff Physician] - 3-5 Days [facility] [Provider Group] - 3-5 Days Forms: Work/School Release Form(ED)
[2020-07-26 12:43] VITALS: BP 136/86
== END 2020-07-26 12:52 | disposition home or self-care (01) ==
LOC: ED 06:48
DX: R05 Cough (principal); R51.9 Headache, unspecified; R09.81 Nasal congestion; Z20.828 Contact with and (suspected) exposure to other viral communicable diseases; I10 Essential (primary) hypertension; Z79.899 Other long term (current) drug therapy
CPT/HCPCS: 99282

== ENCOUNTER 2021-04-24 13:57 | Emergency (ER) | payer SELFPAY ==
--- NOTE | 2021-04-24 15:11 | Emergency Department Report ---
- General Chief complaint: Earache Stated complaint: SOMETHING BIT IN RIGHT EAR/SWOLLEN Time Seen by Provider: 04/24/21 15:07 Source: patient Mode of arrival: Ambulatory Limitations: No Limitations - History of Present Illness Initial comments: 46-year-old -[place] male presents to the emergency room stating that he has right ear pain from a possible bug bite 3 days ago. Patient reports that the right ear is painful and traveling down his neck. Patient is taking nothing for the pain. Patient states the pain is a 6 out of 10. Denies any hearing loss no headache no nausea no vomiting or dizziness. MD complaint: rash, insect bite/sting Onset/Timin -: days(s) Tetanus Up to Date: yes Location: face (Right ear) Severity scale (0 -10): 6 Quality: burning, aching Consistency: constant Improves with: none Worsens with: movement Context: other (Possible insect bite) Associated symptoms: denies other symptoms Treatments Prior to Arrival: none - Related Data Home Medications Medication Instructions Recorded Confirmed Last Taken HYDROcodone/ACETAMINOPHEN 08/06/13 08/06/13 08/03/13 19:30 [Hydrocodon-Acetaminophen 5-500 Tab (Nf)] Naproxen 08/06/13 08/06/13 07/30/13 Previous Rx's Medication Instructions Recorded Last Taken Type HYDROcodone/APAP 5-325 [[place] 1 each PO Q6HR PRN #60 tablet 08/06/13 Unknown Rx 5/325 mg] metroNIDAZOLE [Flagyl] 250 mg PO Q8HR #30 tablet 08/06/13 Unknown Rx DOXYCYCLINE Hyclate [Vibramycin 100 mg PO Q12HR #20 capsule 07/30/15 Unknown Rx CAP] Ibuprofen [Motrin] 600 mg PO Q8H PRN #30 tablet 07/30/15 Unknown Rx metroNIDAZOLE [Flagyl] 500 mg PO Q12HR #20 tab 07/30/15 Unknown Rx Ciprofloxacin HCl [Ciprofloxacin 500 mg PO Q12H 10 Days #20 tab 01/08/18 Unknown Rx TAB] lisinopriL [Lisinopril] 20 mg PO QDAY 30 Days #30 tablet 01/08/18 Unknown Rx traMADoL [Ultram] 50 mg PO Q6HR PRN #12 tablet 01/08/18 Unknown Rx Ibuprofen [Motrin] 800 mg PO Q8HR PRN #30 tablet 04/29/19 Unknown Rx levoFLOXacin [Levaquin TAB] 500 mg PO QDAY #10 tablet 04/29/19 Unknown Rx traMADoL [Ultram 50 MG tab] 50 mg PO Q6HR PRN #20 tablet 04/29/19 Unknown Rx Acetaminophen [Acetaminophen 8 650 mg PO Q8H PRN #12 tablet.er 07/26/20 Unknown Rx Hour] Benzonatate [Tessalon Perles] 100 mg PO Q8HR PRN #12 capsule 07/26/20 Unknown Rx Mupirocin [Bactroban 2%] 1 applic TP TID #1 tube 04/24/21 Unknown Rx Sulfamethoxazole/Trimethoprim 1 each PO BID 7 Days #14 tablet 04/24/21 Unknown Rx [Bactrim DS TAB] Allergies Allergy/AdvReac Type Severity Reaction Status Date / Time No Known Allergies Allergy Verified 07/26/20 07:10 Abscess Boil HPI - HPI Chief Complaint: Earache Stated Complaint: SOMETHING BIT IN RIGHT EAR/SWOLLEN Time Seen by Provider: 04/24/21 15:07 Home Medications: Home Medications Medication Instructions Recorded Confirmed Last Taken HYDROcodone/ACETAMINOPHEN 08/06/13 08/06/13 08/03/13 19:30 [Hydrocodon-Acetaminophen 5-500 Tab (Nf)] Naproxen 08/06/13 08/06/13 07/30/13 Previous Rx's Medication Instructions Recorded Last Taken Type HYDROcodone/APAP 5-325 [[place] 1 each PO Q6HR PRN #60 tablet 08/06/13 Unknown Rx 5/325 mg] metroNIDAZOLE [Flagyl] 250 mg PO Q8HR #30 tablet 08/06/13 Unknown Rx DOXYCYCLINE Hyclate [Vibramycin 100 mg PO Q12HR #20 capsule 07/30/15 Unknown Rx CAP] Ibuprofen [Motrin] 600 mg PO Q8H PRN #30 tablet 07/30/15 Unknown Rx metroNIDAZOLE [Flagyl] 500 mg PO Q12HR #20 tab 07/30/15 Unknown Rx Ciprofloxacin HCl [Ciprofloxacin 500 mg PO Q12H 10 Days #20 tab 01/08/18 Unknown Rx TAB] lisinopriL [Lisinopril] 20 mg PO QDAY 30 Days #30 tablet 01/08/18 Unknown Rx traMADoL [Ultram] 50 mg PO Q6HR PRN #12 tablet 01/08/18 Unknown Rx Ibuprofen [Motrin] 800 mg PO Q8HR PRN #30 tablet 04/29/19 Unknown Rx levoFLOXacin [Levaquin TAB] 500 mg PO QDAY #10 tablet 04/29/19 Unknown Rx traMADoL [Ultram 50 MG tab] 50 mg PO Q6HR PRN #20 tablet 04/29/19 Unknown Rx Acetaminophen [Acetaminophen 8 650 mg PO Q8H PRN #12 tablet.er 07/26/20 Unknown Rx Hour] Benzonatate [Tessalon Perles] 100 mg PO Q8HR PRN #12 capsule 07/26/20 Unknown Rx Mupirocin [Bactroban 2%] 1 applic TP TID #1 tube 04/24/21 Unknown Rx Sulfamethoxazole/Trimethoprim 1 each PO BID 7 Days #14 tablet 04/24/21 Unknown Rx [Bactrim DS TAB] Allergies/Adverse Reactions: Allergies Allergy/AdvReac Type Severity Reaction Status Date / Time No Known Allergies Allergy Verified 07/26/20 07:10 ED Review of Systems ROS: Stated complaint: SOMETHING BIT IN RIGHT EAR/SWOLLEN Other details as noted in HPI Comment: All other systems reviewed and negative ED Past Medical Hx - Past Medical History Previous Medical History?: Yes Hx Hypertension: Yes - Surgical History Past Surgical History?: No - Social History Smoking Status: Never Smoker Substance Use Type: Alcohol - Medications Home Medications: Home Medications Medication Instructions Recorded Confirmed Last Taken Type HYDROcodone/ACETAMINOPHEN 08/06/13 08/06/13 08/03/13 19:30 History [Hydrocodon-Acetaminophen 5-500 Tab (Nf)] HYDROcodone/APAP 5-325 [[place] 1 each PO Q6HR PRN #60 tablet 08/06/13 Unknown Rx 5/325 mg] Naproxen 08/06/13 08/06/13 07/30/13 History metroNIDAZOLE [Flagyl] 250 mg PO Q8HR #30 tablet 08/06/13 Unknown Rx DOXYCYCLINE Hyclate [Vibramycin 100 mg PO Q12HR #20 capsule 07/30/15 Unknown Rx CAP] Ibuprofen [Motrin] 600 mg PO Q8H PRN #30 tablet 07/30/15 Unknown Rx metroNIDAZOLE [Flagyl] 500 mg PO Q12HR #20 tab 07/30/15 Unknown Rx Ciprofloxacin HCl [Ciprofloxacin 500 mg PO Q12H 10 Days #20 tab 01/08/18 Unknown Rx TAB] lisinopriL [Lisinopril] 20 mg PO QDAY 30 Days #30 tablet 01/08/18 Unknown Rx traMADoL [Ultram] 50 mg PO Q6HR PRN #12 tablet 01/08/18 Unknown Rx Ibuprofen [Motrin] 800 mg PO Q8HR PRN #30 tablet 04/29/19 Unknown Rx levoFLOXacin [Levaquin TAB] 500 mg PO QDAY #10 tablet 04/29/19 Unknown Rx traMADoL [Ultram 50 MG tab] 50 mg PO Q6HR PRN #20 tablet 04/29/19 Unknown Rx Acetaminophen [Acetaminophen 8 650 mg PO Q8H PRN #12 tablet.er 07/26/20 Unknown Rx Hour] Benzonatate [Tessalon Perles] 100 mg PO Q8HR PRN #12 capsule 07/26/20 Unknown Rx Mupirocin [Bactroban 2%] 1 applic TP TID #1 tube 04/24/21 Unknown Rx Sulfamethoxazole/Trimethoprim 1 each PO BID 7 Days #14 tablet 04/24/21 Unknown Rx [Bactrim DS TAB] ED Physical Exam - General Limitations: No Limitations General appearance: alert, in no apparent distress - Head Head exam: Present: atraumatic, normocephalic - Eye Eye exam: Present: normal appearance - ENT ENT exam: Present: TM's normal bilaterally. Absent: normal external ear exam - Expanded ENT Exam Expanded Ear exam: Present: other (Swelling of the right article with dry crusty discharge at javon cavity) - Neck Neck exam: Present: tenderness (Right anterior lymph node), full ROM - Respiratory Respiratory exam: Absent: accessory muscle use - Cardiovascular Cardiovascular Exam: Present: regular rate - Extremities Exam Extremities exam: Present: normal inspection - Neurological Exam Neurological exam: Present: alert, oriented X3 - Psychiatric Psychiatric exam: Present: normal affect, normal mood ED Course Vital Signs 04/24/21 14:33 Temperature 98.7 F Pulse Rate 104 H Respiratory 18 Rate Blood Pressure 136/105 O2 Sat by Pulse 98 Oximetry ED Medical Decision Making - Medical Decision Making 46-year-old -[place] male presents to the emergency room stating that he has right ear pain from a possible bug bite 3 days ago. Patient reports that the right ear is painful and traveling down his neck. Patient is taking nothing for the pain. Patient states the pain is a 6 out of 10. Denies any hearing loss no headache no nausea no vomiting or dizziness. Patient be placed on Bactrim double strength and Bactroban cream. Patient can take Tylenol or ibuprofen. Vital signs are stable patient stable to be discharged home follow-up with a primary care provider. Critical care attestation.: If time is entered above; I have spent that time in minutes in the direct care of this critically ill patient, excluding procedure time. ED Disposition Clinical Impression: Cellulitis of auricle of right ear Disposition: DC- TO HOME OR SELFCARE Is pt being admited?: No Does the pt Need Aspirin: No Condition: Stable Additional Instructions: Complete antibiotics as prescribed. Use Bactroban antibiotic cream to the ear. Tylenol or ibuprofen as needed for pain management. Follow-up with your primary care provider. Prescriptions: Sulfamethoxazole/Trimethoprim [Bactrim DS TAB] 1 each PO BID 7 Days #14 tablet Mupirocin [Bactroban 2%] 1 applic TP TID #1 tube Referrals: PRIMARY CARE, [Primary Care Provider] - 3-5 Days Forms: Work/School Release Form(ED)
== END 2021-04-24 15:38 | disposition home or self-care (01) ==
LOC: ED 13:57
CPT/HCPCS: 99282; 99283